=== PATIENT | male | born 1990 | race Caucasian/White ===

== ENCOUNTER 2019-08-29 19:57 | Inpatient (IN) | payer BC, OTHER ==
[~2019-08-29] VITALS: Ht 177.8 cm; Wt 93.3 kg
[2019-08-29 19:58] VITALS: BP 70/30
[2019-08-29] MEDS ORDERED: LEXAPRO20 MG PO (20:18)
[2019-08-29] MEDS ORDERED: METHYLPHENIDATE10 M4 PO (20:19)
[2019-08-29] MEDS ORDERED: PROTONIX40 M2 PO (20:20)
[2019-08-29 20:37] LABS: HEMOGLOBIN 16.5 gm/dL (14.0-18.0); MCH 29.5 pg (26.0-34.0); MCHC 34.7 g/dL (28.0-37.0); WBC 8.6 thou/uL (4.0-11.0)
[2019-08-29 20:39] LABS: ABSOLUTE NEUTROPHILS 5.2 thou/uL (1.4-8.2); BASOPHILS 0.6 % (0.0-2.0); EOSINOPHILS 2.7 % (0.0-3.0); HEMATOCRIT 47.5 % (42.0-52.0); LYMPHOCYTES 30.6 % (24.0-44.0); MONOCYTES 5.5 % (1.0-8.0); PLATELET COUNT 240 thou/uL (150-400); POLYS 60.6 % (36.0-66.0); RBC 5.58 mil/uL (4.50-6.00); RDW 12.3 % (10.5-14.5)
[2019-08-29 20:42] LABS: CALCIUM 9.5 mg/dL (8.5-10.1); CREATININE 1.3 mg/dL (0.7-1.3); POTASSIUM 3.4 mmol/L (3.5-5.1)
[2019-08-29 20:48] LABS: ALBUMIN 4.3 g/dL (3.4-5.0); TOTAL BILIRUBIN 0.4 mg/dL (<0.1-1.0); TOTAL PROTEIN 7.1 g/dL (6.4-8.2)
[2019-08-29 21:00] LABS: URINE BILIRUBIN NEGATIVE (Negative); URINE BLOOD NEGATIVE (Negative); URINE CLARITY CLEAR; URINE COLOR YELLOW; URINE GLUCOSE-RANDOM* NEGATIVE (Negative); URINE KETONES NEGATIVE (Negative); URINE LEUKOCYTES-REFLEX NEGATIVE (Negative); URINE NITRITE-REFLEX NEGATIVE (Negative); URINE PROTEIN (DIPSTICK) NEGATIVE (Negative); URINE SPECIFIC GRAVITY >= 1.030 (1.005-1.035); URINE UROBILINOGEN 0.2 E.U./dl (0.2-1.0)
[2019-08-29 22:45] LABS: AMP/METHAMP Negative (Negative); BARBITURATES Negative (Negative); BENZODIAZEPINES Negative (Negative); COCAINE Negative (Negative); METHADONE Negative (Negative); OPIATES Negative (Negative); PCP Negative (Negative)
[2019-08-29 23:17] VITALS: BP 106/54
[2019-08-30] VITALS (8 sets, daily range): BP systolic 102–119; BP diastolic 52–59
--- NOTE | 2019-08-30 03:44 | NUR ---
REPORT IS GIVEN TO GUERO LINARES.
--- NOTE | 2019-08-30 06:15 | NUR ---
PT ARRIVED ON UNIT FROM ER AT 0415. ADMITTED WITH ABDOMINAL PAIN, WEAKNESS, DIZZINESS. VOIDING PER URINAL. MORPHINE PROVIDING PAIN RELIEF. DENIES NAUSEA. ADMIT ORDER CHANGED FROM M/S TO M/S TELE. TRANSFERRED TO RM 357 AT 0600.
--- NOTE | 2019-08-30 10:45 | NUR ---
PT CARE ASSUMED AT 0700, PT ALERT AND ORIENTED X4, COMPLAINS OF CHEYENNE-UMBILICAL AREA PAIN WHEN TOUCH. DENIES ANY CHEST PAIN, NAUSEA AND VOMITING. ASSESSMENT COMPLETED. PT UPDATED ON CARE, AND KEEPING HIM NPO UNTIL SURGEON SEE HIM. PT DENIES ANY OTHER NEEDS. CALL LIGHT AND TABLE IN REACH, BED AT LOWEST LEVEL.
--- NOTE | 2019-08-31 03:25 | NUR ---
DENIES PAIN TONIGHT, AND HAS ALSO DENIED NAUSEA AND/OR VOMITING. HEART RHTYTHM SINUS AND HE IS RESTING QUIETLY. HE WALKED AROUND THE NURSING UNIT WITH HIS GIRLFRIEND AT BEDTIME. CAREPLAN REVIEWED.
[2019-08-31 03:45] VITALS: BP 107/61
[2019-08-31 07:27] VITALS: BP 105/53
--- NOTE | 2019-08-31 07:46 | NUR ---
0710 Report recieved from Yaz JACK this patient is resting in bed no needs or concerns voiced at this time.
--- NOTE | 2019-08-31 14:19 | EKG ---
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
[2019-08-31 14:25] VITALS: BP 105/53
--- NOTE | 2019-08-31 16:31 | NUR ---
1525 Discharge education gone over with the patient follow up appointments gone over with along with discharge medications no new scripts. Verbal and written acknowledgement of understanding. ALIDA dc'd along with Tele 1612 patient discharged from hospital with girlfriend at this time.
--- NOTE | 2019-09-02 09:09 | CRIT ---
[facility] [place] [address] CRITICAL CARE NOTE Name: DWAINEIVANIAJameson KUMAR Room #: 357-P [facility] IN M.R.#: [id number] Admission: 08/30/19 Attend Phys: Dionne Womack Discharge: 08/31/19 Date of : [birth year] Report #: [id number] THIS REPORT FOR: //name// CC: Manfred Uriostegui [facility] physician/PCP GASTROINTESTINAL CONSULTATION The patient is a very pleasant 29-year-old male who is otherwise normal state of health until approximately 7:00 p.m. last night after he ingested a pizza and developed significant nausea, vomiting and abdominal pain. He has had no diarrhea. Abdominal pain has persisted and was evaluated in the Emergency Department last night with no obvious evidence of significant abnormality. PAST MEDICAL HISTORY: Otherwise notable for ADD and reflux. He has also had some anxiety and tonsillectomy. FAMILY HISTORY: Negative for inflammatory bowel disease or colon cancer. REVIEW OF SYSTEMS: Negative for weight loss, weakness or fatigue. He denies head, eyes, ears, nose or throat complaints. Denies chest pain, chest palpitation, chest pressure, cough, shortness of breath, wheezing, genitourinary, musculoskeletal or neuropsychiatric complaints otherwise. HOME MEDICATIONS: Include Lexapro, Ritalin and Protonix. SOCIAL HISTORY: Otherwise denies significant alcohol or tobacco consumption. PHYSICAL EXAMINATION: GENERAL: The patient is afebrile. VITAL SIGNS: Stable. HEENT: Nonicteric. NECK: No JVD, thyromegaly or bruits. CARDIOVASCULAR: Regular. LUNGS: Clear. ABDOMEN: Soft, nondistended, nontender, normoactive bowel sounds. No hepatosplenomegaly. No stigmata of chronic liver disease. No abnormal masses or bruits. EXTREMITIES: No clubbing, cyanosis or edema. NEUROLOGIC: Grossly intact. RECTAL: Deferred. PERTINENT LABORATORY DATA: Include normal CBC, normal UA, normal toxicology. Chemistry is notable for BUN 23, creatinine 1.3, glucose 115, potassium 3.4. Rest of his liver tests including lipase is normal. [address] [address] CRITICAL CARE NOTE Name: IVANIA ISIDRO Room #: 357-[facility] IN M.R.#: [id number] Admission: 08/30/19 Attend Phys: Dionne Womack Discharge: 08/31/19 Date of : [birth year] Report #: [id number] reveals CT abdomen and pelvis without evidence of abnormalities. Appendix okay. ASSESSMENT: In summary, the patient has gastroenteritis versus evolving appendicitis, which is unlikely. I would treat him symptomatically with rehydration and support and antiemetics. I would avoid narcotic pain medications as his ileus is most likely secondary to an enteric infection. I agree with observation for another 24 hours. Elective workup for gastroesophageal reflux is reasonable with an upper endoscopy. I do not see a need for colonoscopy at this point. We will follow concurrently. Thanks for allowing us to participate in his care. <ELECTRONICALLY SIGNED> By: Carlos Mcclellan MD 09/02/19 0909 1415 1520 Manan Lilly MD /nt
== END 2019-08-31 16:35 | disposition home or self-care (01) | DRG 316 ==
LOC: ER 19:57 → EROBS 08-30 03:26 → 3W 08-30 03:26 → 4S 08-30 04:01 → 3W 08-30 06:19
PROVIDERS: Emergency Medicine; ADMIT Hospitalist
DX: I95.9 Hypotension, unspecified (principal); K21.9 Gastro-esophageal reflux disease without esophagitis; F41.9 Anxiety disorder, unspecified; F90.9 Attention-deficit hyperactivity disorder, unspecified type; I45.6 Pre-excitation syndrome; R10.9 Unspecified abdominal pain; Z79.899 Other long term (current) drug therapy; Z82.49 Family history of ischemic heart disease and other diseases of the circulatory system; Z80.2 Family history of malignant neoplasm of other respiratory and intrathoracic organs
CPT/HCPCS: 10879

== ENCOUNTER → 2019-12-02 | Outpatient (CLI) | payer BC ==
[~2019-12-02] MED LIST: ASPIR 8181 M1 PO; LEXAPRO20 MG PO; METHYLPHENIDATE10 M4 PO; PROTONIX40 M2 PO
--- NOTE | 2019-12-02 09:41 | 2DMMODE ---
[facility] [place] [address] 2 D/M-MODE ECHOCARDIOGRAM Name: IVANIA ISIDRO Room #: REG ROLAND VirkJustin#: [id number] Admission: 12/02/19 Attend Phys: Phoenix Sanchez MD Discharge: Date of : [birth year] Report #: [id number] THIS REPORT FOR: cc: Charli Sweeney MD, John R. MD Lammoglia, Francisco J. MD ~ APPROVED REPORT Study performed: 12/02/2019 08:58:55 EXAM: Comprehensive 2D, Doppler, and color-flow Echocardiogram Patient Location: Out-Patient Status: routine BSA: 2.10 HR: 68 bpm BP: 108/58 mmHg Rhythm: Regular Other Information Study Quality: Good Indications Mcarthur Parkinson White 2D Dimensions RVDd: 34.64 mm IVSd: 11.45 (7-11mm) LVOT Diam: 21.19 (18-24mm) LVDd: 45.27 mm PWd: 11.18 (7-11mm) Ascending Ao: 39.23 (22-36mm) LVDs: 32.64 (25-40mm) Aortic Root: 38.19 mm Volumes Left Atrial Volume (Systole) Single Plane 4CH: 31.42 mL Single Plane 2CH: 46.78 mL LA ESV Index: 22.00 mL/m2 Aortic Valve AoV Peak Nikhil.: 1.22 m/s AO Peak Gr.: 5.99 mmHg LVOT Max P.20 mmHg LVOT Max V: 1.14 m/s RUDI Vmax: 3.28 cm2 [facility] [address] [place] [address] 2 D/M-MODE ECHOCARDIOGRAM Name: IVANIA ISIDRO Room #: REG CL Anthony#: [id number] Admission: 12/02/19 Attend Phys: [facility] Dis[facility]: Date of : [birth year] Report #: [id number] Mitral Valve E/A Ratio: 1.9 MV Decel. Time: 216.74 ms MV E Max Nikhil.: 0.78 m/s MV A Nikhil.: 0.41 m/s MV PHT: 62.86 ms IVRT: 86.51 ms Pulmonary Valve PV Peak Nikhil.: 1.09 m/s PV Peak Gr.: 4.79 mmHg Tricuspid Valve RAP Estimate: 5.00 mmHg Left Ventricle The left ventricle is normal size. There is normal LV segmental wall motion. There is normal left ventricular wall thickness. Left ventricular systolic function is normal. LVEF is 60-65%. The left ventricular diastolic function is normal. Right Ventricle The right ventricle is normal size. The right ventricular systolic function is normal. Atria The left atrium size is normal. The right atrium size is normal. Aortic Valve The aortic valve is normal in structure. No aortic regurgitation is present. There is no aortic valvular stenosis. Mitral Valve The mitral valve is normal in structure. Trace mitral regurgitation. No evidence of mitral valve stenosis. Tricuspid Valve The tricuspid valve is normal in structure. There is no tricuspid valve regurgitation noted. Unable to assess PA pressure. Pulmonic Valve The pulmonary valve is normal in structure. Trace pulmonic regurgitation. Great Vessels The aortic root is normal in size. The ascending aorta is normal in [facility] [address] [place] [address] 2 D/M-MODE ECHOCARDIOGRAM Name: IVANIA ISIDRO Room #: REG [facility].#: [id number] Admission: 12/02/19 Attend Phys: Phoenix Sanchez Discharge: Date of : 89 Report #: [id number] size. IVC is normal in size and collapses >50% with inspiration. Pericardium There is no pericardial effusion. <Conclusion> The left ventricle is normal size. LVEF is 60-65%. The aortic valve is normal in structure. The mitral valve is normal in structure. Trace mitral regurgitation. The tricuspid valve is normal in structure. The pulmonary valve is normal in structure. Trace pulmonic regurgitation. The aortic root is normal in size. The ascending aorta is normal in size. <ELECTRONICALLY SIGNED> By: Darian Nathan MD 12/02/19 0939 0939 0939 Darian Nathan MD /INF
== END ==
LOC: CV 08:44
PROVIDERS: ATTEND Internal Medicine Cardiovascular Disease
DX: I45.6 Pre-excitation syndrome (principal)

== ENCOUNTER → 2019-12-04 | Outpatient (CLI) | payer BC ==
[~2019-12-04] VITALS: Ht 177.8 cm; Wt 88.5 kg
[2019-12-04 07:28] VITALS: BP 104/58
[2019-12-04 07:32] LABS: ABSOLUTE NEUTROPHILS 3.1 thou/uL (1.4-8.2); BASOPHILS 0.6 % (0.0-2.0); EOSINOPHILS 2.2 % (0.0-3.0); HEMATOCRIT 47.7 % (42.0-52.0); HEMOGLOBIN 16.6 gm/dL (14.0-18.0); LYMPHOCYTES 39.3 % (24.0-44.0); MCH 30.2 pg (26.0-34.0); MCHC 34.8 g/dL (28.0-37.0); MCV 86.8 fL (80.0-100.0); MONOCYTES 7.9 % (1.0-8.0); PLATELET COUNT 231 thou/uL (150-400); RDW 12.7 % (10.5-14.5); WBC 6.1 thou/uL (4.0-11.0)
[2019-12-04 07:40] LABS: CALCIUM 9.1 mg/dL (8.5-10.1); CREATININE 1.3 mg/dL (0.7-1.3); POTASSIUM 3.6 mmol/L (3.5-5.1)
[2019-12-04 07:46] LABS: ALBUMIN 4.3 g/dL (3.4-5.0); TOTAL BILIRUBIN 0.4 mg/dL (0.2-1.0)
[2019-12-04 07:47] LABS: APTT 27.9 Seconds (24.5-32.8); PROTIME 10.4 Seconds (9.3-11.4)
--- NOTE | 2019-12-08 10:21 | P ---
[facility] [place] [address] PROCEDURE REPORT Name: IVANIA ISIDRO Room #: REG [facility] Anthony#: [id number] Admission: 12/04/19 Attend Phys: Phoenix Sanchez MD Discharge: Date of : [birth year] Report #: [id number] THIS REPORT FOR: cc: Charli Sweeney MD,Charli Sanchez,Phoenix Chambers MD ~ CC: Charli Sanchez DATE OF SERVICE: 12/04/2019 SVT ABLATION PREOPERATIVE DIAGNOSIS: Drrip-Yzjtpfiet-Mjptm syndrome. POSTOPERATIVE DIAGNOSIS: Qeufe-Acsnahztf-Tinhc syndrome. PROCEDURES PERFORMED: 1. SVT ablation, CPT code 97521. 2. EP with left atrial pacing and recording, CPT code 21752. 3. Program stimulation pacing after IV drug infusion, CPT code 97307. 4. Intracardiac echo, CPT code 68290. 5. 3D mapping, CPT code 28366. HISTORY OF PRESENT ILLNESS: The patient is a 29-year-old male recently diagnosed with Jqqas-Bziywdfel-Whdns syndrome here for EP study and possible ablation. ANESTHESIA: The patient underwent general anesthesia with no anesthesia related complications. DESCRIPTION OF PROCEDURE: The patient underwent informed consent. We discussed the details of the procedure including the risks, which include but not limited to bleeding, vascular damage, stroke, AR, damage to galena conduction system requiring permanent pacemaker as well as cardiac perforation. He understood these risks and is willing to proceed. The patient was brought to EP laboratory in fasting and sedated state, prepped and draped in a sterile fashion. I obtained access to the bilateral femoral veins placing an 8 and 6-Nauruan short sheath in the right femoral vein and a 7 and 6-Nauruan short sheath in the left femoral vein using the modified Seldinger technique. Next, under fluoroscopy, 3 quadripolar catheters were placed at the HRA, His and RV positions and decapolar catheter was placed easily in the coronary sinus for left atrial pacing and recording At baseline, the patient was in sinus rhythm with sinus cycle length 1036 milliseconds, DC interval 153 milliseconds, QRS duration 145 milliseconds, QT [facility] [address] [place] [address] PROCEDURE REPORT Name: IVANIA ISIDRO Room #: REG [facility].#: [id number] Admission: 12/04/19 Attend Phys: Phoenix Sanchez MD Discharge: Date of : 92 Report #: [id number] interval 470 milliseconds, AH interval 129 milliseconds, and HV interval of -30 milliseconds. Next, atrial burst pacing was performed from the HRA, with atrial pacing the maximal preexcitation demonstrated a right bundle branch block morphology that was positive concordance and positive in II, III and aVF. Antegrade accessory pathway block was noted at 360 milliseconds. Accessory pathway ERP was noted at 350 milliseconds at a [address] cycle length. Next, ventricular pacing was performed. There was no VA conduction at baseline. Isoproterenol infusion was initiated at 2 mcg per minute. Retrograde block via the pathway was noted at 480 milliseconds and retrograde conduction block via the AV node was noted at 400 milliseconds. Antegrade accessory pathway block was noted to be 240 milliseconds, which makes this pathway that is high risk for sudden cardiac . Of note, it did not appear that this pathway could result in SVT due to its poor retrograde conducting properties, but given its high risk antegrade conducting properties I decided that this needed to be ablated. 3D MAPPING AND ABLATION: Next, I obtained access to the right femoral vein using a 6-Nauruan short sheath, in the left femoral vein placing 9-Nauruan short sheath, which I used for intracardiac ultrasound. I then exchanged my 6-Nauruan short sheath for an SL1 sheath and a transseptal was performed using a SL1 sheath and Palmer needle after the patient was systemically heparinized. I initially tried mapping the pathway just using the SL1 sheath and a [email or web address] ThermoCool ablation catheter, but I did not have sufficient reach. Therefore, I exchanged to an Agilis sheath. Quickly we found that the pathway was localized to around 2 o'clock along the mitral annulus. There was a site where there was a fused AV signal with a nice pathway potential noted. Of note, I performed mapping of the pathway while pacing the atrium from CS 5-6. Ablation was performed at 35 batista and the pathway was eliminated in 3.5 seconds as there was loss of preexcitation and antegrade conduction via the pathway. I performed additional ablation around this area to ensure complete elimination of the pathway and then a basic EP study was performed. Isoproterenol infusion was reinitiated at 2 mcg per minute. AV block was noted at 390 milliseconds. AV crystal ERP was noted at 310 milliseconds at a [address] cycle length. Ventricular pacing was performed and VA block was noted at 490 milliseconds via the node. We tested for approximately 30 minutes and there was no further return of the pathway and no other forms of SVT could be induced. Post-ablation, the patient was in sinus rhythm with sinus cycle length of 760 milliseconds, DC interval 162 milliseconds, QRS duration 90 milliseconds, QT interval 410 milliseconds, AH interval 100 milliseconds, and HV interval 47 milliseconds. Using intracardiac ultrasound, I verified there was no pericardial effusion. The patient then received systemic protamine and once ACT was within acceptable range, catheters and sheaths were pulled and hemostasis obtained. The patient awoke neurologically and hemodynamically intact. No complications and no significant bleeding. [facility] [address] [place] [address] PROCEDURE REPORT Name: IVANIA ISIDRO Room #: REG ROLAND Curz#: [id number] Admission: 12/04/19 Attend Phys: Phoenix Sanchez MD Discharge: Date of : 92 Report #: [id number] CONCLUSIONS: 1. Successful ablation of a left anterior lateral pathway located at around 2 o'clock along the mitral annulus. 2. Normal SA crystal function. 3. Normal AV crystal function. 4. Normal His-Purkinje function. 5. No other inducible arrhythmias on or off isoproterenol. <ELECTRONICALLY SIGNED> By: Phoenix Sanchez MD 12/08/19 1021 1442 1844 Phoenix Sanchez MD /nt
== END | disposition home or self-care (01) ==
LOC: CATH 06:42
PROVIDERS: ATTEND Internal Medicine Cardiovascular Disease
DX: I45.6 Pre-excitation syndrome (principal); I47.1 Supraventricular tachycardia; F41.9 Anxiety disorder, unspecified; K21.9 Gastro-esophageal reflux disease without esophagitis; Z98.890 Other specified postprocedural states; Z79.899 Other long term (current) drug therapy; Z79.82 Long term (current) use of aspirin; Z79.01 Long term (current) use of anticoagulants
CPT/HCPCS: 62110; 62900; 70005

== ENCOUNTER 2020-04-05 16:57 | Inpatient (IN) | payer BC ==
[~2020-04-05] VITALS: Ht 177.8 cm; Wt 92.1 kg
--- NOTE | ~2020-04-05 | O ---
[facility] [place] [address] OPERATIVE REPORT Name: IVANIA ISIDRO Room #: 433-I ADM IN M.R.#: [id number] Admission: 04/05/20 Attend Phys: Yevgeniy Palacio, Discharge: Date of : 92 Report #: [id number] THIS REPORT FOR: cc: Charli Sweeney MD, John R. MD Patterson,Yevgeniy Macario MD ~ CC: Charli Palacio DATE OF SERVICE: 04/06/2020 PREOPERATIVE DIAGNOSIS: Acute appendicitis. POSTOPERATIVE DIAGNOSIS: Acute appendicitis. OPERATION: Laparoscopic appendectomy. SURGEON: Yevgeniy Palacio MD ANESTHESIA: General. ESTIMATED BLOOD LOSS: Minimal. SPECIMEN: Appendix. DESCRIPTION OF PROCEDURE: After informed consent was obtained, the patient was brought to the operating room and placed supine. SCDs were placed and working, preoperative antibiotics were administered, general anesthesia was induced. The abdomen was prepped and draped in the usual sterile fashion. A 10 mm incision was made below the umbilicus. Fascia was incised and a trocar was placed. Pneumoperitoneum was established. Right upper quadrant and left lower quadrant 5 mm trocars were placed. The appendix was grasped and retracted anteriorly. The tip had inflammation consistent with the CT findings. A window was made in the mesoappendix. The mesoappendix was ligated with a LUCRECIA torres load stapler. There was good hemostasis. The base of the appendix was then stapled off with a LUCRECIA blue load stapler. It was then placed into an Endopouch and removed. The fascia was then closed with a zxinng-zs-knpdz 0 Vicryl. Skin was closed with 4-0 Monocryl. Incisions were sealed with Dermabond. COMPLICATIONS: None. [facility] [address] [place] [address] OPERATIVE REPORT Name: IVANIA ISIDRO Room #: 433-I [facility] IN ..#: [id number] Admission: 04/05/20 Attend Phys: Yevgeniy Palacio, Discharge: Date of : 92 Report #: [id number] DISPOSITION: The patient was taken to recovery in satisfactory condition. By: 1718 1945 Yevgeniy Palacio MD /nt
[2020-04-05 17:41] VITALS: BP 131/73
[2020-04-05 18:55] LABS: URINE BILIRUBIN NEGATIVE (Negative); URINE BLOOD NEGATIVE (Negative); URINE CLARITY CLEAR; URINE COLOR YELLOW; URINE GLUCOSE-RANDOM* NEGATIVE (Negative); URINE KETONES NEGATIVE (Negative); URINE LEUKOCYTES-REFLEX NEGATIVE (Negative); URINE NITRITE-REFLEX NEGATIVE (Negative); URINE PROTEIN (DIPSTICK) NEGATIVE (Negative); URINE SPECIFIC GRAVITY 1.015 (1.005-1.035); URINE UROBILINOGEN 0.2 E.U./dl (0.2-1.0)
[2020-04-05 18:57] LABS: ABSOLUTE NEUTROPHILS 10.9 thou/uL (1.4-8.2); BASOPHILS 0.4 % (0.0-2.0); EOSINOPHILS 0.1 % (0.0-3.0); HEMOGLOBIN 15.8 gm/dL (14.0-18.0); LYMPHOCYTES 8.4 % (24.0-44.0); MCH 30.2 pg (26.0-34.0); MCHC 35.1 g/dL (28.0-37.0); MCV 86.1 fL (80.0-100.0); MONOCYTES 5.2 % (1.0-8.0); PLATELET COUNT 220 thou/uL (150-400); POLYS 85.9 % (36.0-66.0); RBC 5.23 mil/uL (4.50-6.00); RDW 12.7 % (10.5-14.5); WBC 12.7 thou/uL (4.0-11.0)
[2020-04-05] MEDS ORDERED: DEXTROAMP-AMPHE10 MG PO (18:58)
[2020-04-05 19:05] LABS: CALCIUM 9.4 mg/dL (8.5-10.1); CREATININE 0.9 mg/dL (0.7-1.3); POTASSIUM 3.9 mmol/L (3.5-5.1)
[2020-04-05 19:11] LABS: ALBUMIN 4.6 g/dL (3.4-5.0); DIRECT BILIRUBIN 0.1 mg/dL (<0.1-0.2); TOTAL BILIRUBIN 0.7 mg/dL (0.2-1.0); TOTAL PROTEIN 7.7 g/dL (6.4-8.2)
[2020-04-05 22:05] VITALS: BP 113/76
[2020-04-05 22:50] VITALS: BP 113/72
[2020-04-06] VITALS (9 sets, daily range): BP systolic 117–136; BP diastolic 51–68
--- NOTE | 2020-04-06 02:07 | NUR ---
PT ADMITTED TO THE UNIT FROM THE ER AT 2315.PT ADMITTED WITH C/O OF RLQ PAIN AND NAUSEA AND DIAGNOSED WITH ACUTE APPENDICITIS.PT IS A/O X4.PT IS UP AD YAMILEX.PT IS ON ROOM AIR AND IV ACCESS ON LT AC WITH NS AT 125CC/HR.PT IS TO HAVE SURGERY THIS MORNING AND WAS NPO FROM MIDNIGHT.PT RATES PAIN 7/10.FALL EDUCATION DONE .ADMISSION ASSESSMENT ,HISTORY COMPLETED.WILL CONTINUE TO MONITOR
[2020-04-06 05:56] LABS: HEMATOCRIT 41.9 % (42.0-52.0); HEMOGLOBIN 14.2 gm/dL (14.0-18.0); MCH 29.4 pg (26.0-34.0); MCHC 33.9 g/dL (28.0-37.0); MCV 86.7 fL (80.0-100.0); RBC 4.83 mil/uL (4.50-6.00); RDW 12.7 % (10.5-14.5); WBC 11.9 thou/uL (4.0-11.0)
[2020-04-06 06:07] LABS: CALCIUM 8.8 mg/dL (8.5-10.1); CREATININE 1.2 mg/dL (0.7-1.3); POTASSIUM 3.9 mmol/L (3.5-5.1)
--- NOTE | 2020-04-06 07:35 | EKG ---
[facility] [place] [address] ELECTROCARDIOGRAM REPORT Name: IVANIA ISIDRO Room #: 433-I ADM IN M.R.#: [id number] Admission: 04/05/20 Attend Phys: Yevgeniy Palacio, Discharge: Date of : 89 Report #: [id number] THIS REPORT FOR: cc: Charli Sweeney MD, John R. 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: DMITRY : 1990 Requested By: Uriah Christensen Order Number: [id number] MD: Devan Keller Measurements Intervals [place] Rate: 72 P: -57 RI: 259 QRS: 4 QRSD: 92 T: 29 QT: 386 QTc: 423 Interpretive Statements Sinus or ectopic atrial rhythm Prolonged RI interval RSR' in V1 or V2, probably normal variant Compared to ECG 08/29/2019 22:17:47 Ectopic atrial rhythm now present First degree AV block now present RSR' in V1 or V2 now present Sinus rhythm no longer present Electronically Signed On 04-06-2020 7:34:59 CDT by Devan Keller [email or web address] <ELECTRONICALLY SIGNED> By: Devan Keller MD, FACC 04/06/20 0734 27 27 Devan Keller MD, [facility] /EPI
--- NOTE | 2020-04-06 08:43 | NUR ---
ASSESSMENT: CM REVIEWED CHART AND MET WITH PATIENT AT THE BEDSIDE. PT IS ALERT AND ORIENTED X4. PT ADMITS FROM HOME DUE TO ACUTE APPENDICITIS. PT REPORTS THAT HE LIVES IN A HOUSE ALONE. PT REPORTS BEING FULLY INDEPENDENT WITH ADLS AND AMBULATION. PT REPORTS NO PAST HX OF HH. PT IS CURRENTLY ON IV FLUIDS. CM WILL CONTINUE TO FOLLOW TO ASSIST NEEDED. PT DOES NOT FEEL HE WILL HAVE ANY NEEDS FROM CM.
--- NOTE | 2020-04-06 18:27 | NUR ---
PT ASSESSED AT START OF SHIFT. HAD BEEN NPO FOR SURGERY. LOUPINE FOR ABD PAIN. DR. NELSON IN TO SEE PT RE LAP APPY THIS AFTERNOON. LEFT FOR SURGERY PER BED AT 1600 AND RETURNED AT 1800 ALERT AND IN NO PAIN. EATING SOLID FOOD FOR DINNER. 3 ABD LAP SITES W/ DERMABOND. ICE PACK IN PLACE. PT STAYING THE NOC HE LIVES ALONE. FIANCE AT BEDSIDE NOW.
--- NOTE | 2020-04-07 03:22 | NUR ---
PT IS PLEASANT. ALERT AND ORIENTED X4. VOIDING PER BATHROOM. LAP SITES TO ABDOMEN LOOK OKAY.IVF INFUSING.NO FURTHER CONCERNS.
[2020-04-07 10:50] VITALS: BP 136/59
--- NOTE | 2020-04-07 10:53 | NUR ---
ON-GOING ASSESSMENT: PT HAS ORDERS TO DISCHARGE HOME TODAY WITH NO NEEDS FROM CM. CASE CLOSED.
--- NOTE | 2020-04-07 11:05 | NUR ---
ASSUMED PT AT 0700. PT IS A&OX4, VSS, RA, UP AD YAMILEX, CONTINENT OF BOWEL AND BLADDER. PT DENIES PAIN. PT CAN DISCHARGE HOME, SHOWER NEEDED, AND WILL RECEIVE FURTHER INSTRUCTIONS ON ONLINE PORTAL VIA EMAIL PER DR. NELSON. CALL LIGHT WITHIN REACH.
--- NOTE | 2020-04-08 18:06 | PATH ---
[facility] [address] [place] [address] PATHOLOGY RPT PROCEDURE Name: ARAVIND STANLEY Room #: 433-I DIS IN M.R.#: [id number] Admission: 04/05/20 Date of : [birth year] Discharge: 04/07/20 Report #: [id number] Path Case #: [id number] [facility] Accession Number: [id number] . 01 Material submitted: . appendix - APPENDIX . 01 Clinician provided ICD-10: y . 01 Clinical history: . CRISTINA COWAN JOHN . 02 Diagnosis: Appendix, appendectomy: - Marked acute appendicitis along with marked acute serositis. 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 02 Electronically signed: . Bria Rodgers MD, Pathologist NPI- [id number] . 01 Gross description: . The specimen is received in formalin, labeled "Aravind Stanley, appendix" and consists of an appendix measuring 6.8 cm in length and up to 1.0 cm in diameter with mesoappendix measuring 1.6 cm thick. The serosa is pink-david to purple-brown and hemorrhagic. The margin is closed with a line of maury and inked black. Sectioning reveals dilated lumen containing brown fecal material. Descriptive Catalog Librarian sections are submitted in A1-A2. (SDY; 04/07/2020) SYU/SYU 04/07/2020 1716 Local . 02 Pathologist provided ICD-10: K35.80, K65.8 . 02 CPT . 082821 Specimen Comment: A courtesy copy of this report has been sent to [phone] Specimen Comment: Report sent to Performed at: 01 [place] [id number] [address] [id number] MD Hunter Centeno MD Phone: [phone] Performed at: 02 [facility] [address] [place] [address] PATHOLOGY RPT PROCEDURE Name: ARAVIND STANLEY STACY Room #: 433-I [facility] IN M.R.#: [id number] Admission: 04/05/20 Date of : [birth year] Discharge: 04/07/20 Report #: [id number] Path Case #: [id number] [address] [place] [address] [id number] MD Bria Rodgers MD Phone: [phone]
== END 2020-04-07 17:08 | disposition home or self-care (01) | DRG 343 ==
LOC: ER 16:57 → 4S 21:18 → EROBS 21:18 → 4S 23:22
PROVIDERS: Nurse Practitioner; ADMIT Surgery; ATTEND Surgery
PROC: 0DTJ4ZZ Resection of Appendix, Percutaneous Endoscopic Approach (ICD-10-PCS; principal; 2020-04-06)
DX: K35.80 Unspecified acute appendicitis (principal); F41.9 Anxiety disorder, unspecified; K21.9 Gastro-esophageal reflux disease without esophagitis; F90.9 Attention-deficit hyperactivity disorder, unspecified type; Z20.828 Contact with and (suspected) exposure to other viral communicable diseases
CPT/HCPCS: 10195; 50010; 50101; 50411; 50555; 50739; 50740; 52265; 52266; 53307; 53312; 53314; 56525; 56526; 62110; 62900; 70005